=== PATIENT | female | born 1970 | race Caucasian/White ===

== ENCOUNTER 2020-01-27 19:52 | Emergency (ER) | payer BC, SELFPAY ==
[2020-01-27 20:01] VITALS: BP 177/85; PULSE 110; RESP 24; TEMP 38.6; O2SAT 96
--- NOTE | 2020-01-27 20:05 | ED.URI ---
HPI - URI/Sore Throat General Chief Complaint: Upper Respiratory Infection Stated Complaint: Cold/Flu Time Seen by Provider: 01/27/20 20:05 Source: patient and RN notes reviewed Mode of arrival: ambulatory Limitations: no limitations History of Present Illness HPI Narrative: 49-year-old female presents with concern for fever, body aches, chills, cough, rhinorrhea that started yesterday. She reports history of asthma. MD elicited complaint: cough Related Data Home Medications Medication Instructions Recorded Confirmed albuterol sulfate 2 puff INHALATION QID 01/27/20 01/27/20 escitalopram oxalate 10 mg PO DAILY 01/27/20 01/27/20 fluticasone furoate-vilanterol 1 inh INHALATION Q24H 01/27/20 01/27/20 [Breo Ellipta] montelukast [Singulair] 10 mg PO DAILY 01/27/20 01/27/20 omeprazole magnesium [Prilosec OTC] 20 mg PO BID 01/27/20 01/27/20 omeprazole magnesium [Prilosec OTC] 20 mg PO DAILY 01/27/20 01/27/20 Allergies Allergy/AdvReac Type Severity Reaction Status Date / Time No Known Allergies Allergy Verified 01/27/20 20:12 Review of Systems Review of Systems: Narrative: CONSTITUTIONAL: Reports malaise, chills, sweats, or fever. EYES: Denies visual changes, redness, or discharge. ENT: Reports rhinorrhea, congestion. Denies sinus pain, otalgia and sore throat. CARDIOVASCULAR: Denies chest pain, palpitations, or edema. RESPIRATORY: Reports cough, wheeze. Denies dyspnea. GASTROINTESTINAL: Denies abdominal pain, nausea, vomiting, diarrhea SKIN: Denies rash or itching. MUSCULOSKELETAL: Reports myalgia. NEUROLOGIC: Denies headache. All systems reviewed & are unremarkable except as noted in HPI and below PMFSH Comments At time of signature, agree with nursing past medical, surgical, social and family history. There is no relevant family history pertinent to the presenting complaint Exam Narrative: Exam Narrative: GENERAL: Well-appearing, well-nourished, and in no acute distress. HEAD: Normocephalic EYES: PERRLA, conjunctivae clear ENT: Nares clear, turbinates edematous and erythematous, clear discharge. Mucous membranes moist. TM pearly leal with dull light reflex bilaterally; no tragal tenderness. Oropharynx not erythematous without lesions. Tonsils not enlarged and without exudate, no drooling, no hoarseness, no trismus. NECK: Supple. No lymphadenopathy CHEST: Clear to auscultation, breath sounds equal. No wheezing, rhonchi, rales, or stridor. No respiratory distress, speaks in full sentences. Cough noted HEART: Regular rate and rhythm. No murmur heard. Normal peripheral pulses. SKIN: Warm, dry, no rash. NEURO: Alert and oriented x3. PSYCH: Normal mood and affect Course Course Emergency Course: Patient is aware of diagnosis, understands and agrees to treatment plan. Anticipatory guidance given. Patient agrees to follow-up as directed and is aware of reasons to seek care at the emergency department. Portions of this record may have been created with voice recognition software Vital Signs Vital signs: Vital Signs Temperature 101.4 F H 01/27/20 20:01 Pulse Rate 110 H 01/27/20 20:01 Respiratory Rate 24 H 01/27/20 20:01 Blood Pressure 177/85 H 01/27/20 20:01 Pulse Oximetry 96 01/27/20 20:01 Temperature 101.4 F H 01/27/20 20:01 Pulse Rate 110 H 01/27/20 20:01 Respiratory Rate 24 H 01/27/20 20:01 Blood Pressure 177/85 H 01/27/20 20:01 Pulse Oximetry 96 01/27/20 20:01 Your blood pressure was elevated above 120/80 today at [facility]. This puts you above the threshold for follow up. Please schedule a follow up visit with your personal physician as soon as possible, for further evaluation and treatment. Even blood pressure exceeding 120/80 may indicate pre-hypertension. MDM - URI/Sore Throat MDM Narrative Medical decision making narrative: Differential diagnosis considered: Strep pharyngitis, allergic rhinitis, upper respiratory tract infection, sinusitis, rhinosinusitis, nasopharyngitis. viral
== END 2020-01-27 20:21 | disposition home or self-care (01) ==
PROVIDERS: Emergency Provider Nurse Practitioner
DX: J10.1 Influenza due to other identified influenza virus with other respiratory manifestations (principal); J45.909 Unspecified asthma, uncomplicated; F41.9 Anxiety disorder, unspecified
CPT/HCPCS: 87804; 99213; G0463

== ENCOUNTER 2022-09-17 18:13 | Emergency (ER) | payer BC, SELFPAY ==
--- NOTE | 2022-09-17 18:17 | ED.URI ---
HPI - URI/Sore Throat General Chief Complaint: Upper Respiratory Infection Stated Complaint: Sore Throat/Fever Time Seen by Provider: 09/17/22 18:17 Source: patient and RN notes reviewed History of Present Illness HPI Narrative: Patient is a 52-year-old female who presents the urgent care with complaints of body aches, sore throat and fever. Patient states that started last night and the fever started this evening. Patient has taken some Aleve. Denies of any known exposures. However, patient does do home visits and has been in contact with ill people recently. States her main concern is to rule out strep and influenza. No other acute complaints. No acute distress noted. Patient aware of the plan of care. Some parts of this dictation were generated by voice recognition software and may contain typographical and/or grammatical inaccuracies. Related Data Home Medications Medication Instructions Recorded Confirmed empagliflozin 10 mg tablet 10 mg PO DAILY 09/17/22 09/17/22 (Jardiance) erenumab-aooe 140 mg/mL 140 mg subcut MONTHLY 09/17/22 09/17/22 subcutaneous auto-injector (Aimovig Autoinjector) escitalopram oxalate 10 mg tablet 20 mg PO DAILY 09/17/22 09/17/22 montelukast 10 mg tablet 10 mg PO DAILY 09/17/22 09/17/22 semaglutide 0.25 mg or 0.5 mg (2 0.25 mg subcut WEEKLY 09/17/22 09/17/22 mg/1.5 mL) subcutaneous pen injector (Ozempic) sumatriptan succinate 100 mg tablet 100 mg PO DAILY PRN Migraine 09/17/22 09/17/22 Headache Allergies Allergy/AdvReac Type Severity Reaction Status Date / Time No Known Allergies Allergy Verified 09/17/22 18:18 Review of Systems Review of Systems: CONSTITUTIONAL: Reports a fever EYES: Denies visual changes, redness, or discharge. ENT: Denies rhinorrhea, congestion, otalgia. Reports of sore throat CARDIOVASCULAR: Denies chest pain, palpitations, or edema. RESPIRATORY: Denies cough or dyspnea. GASTROINTESTINAL: Denies abdominal pain, nausea, vomiting, or diarrhea. GENITOURINARY: Denies dysuria or hematuria. SKIN: Denies rash or itching. MUSCULOSKELETAL: Denies back pain, joint pain. Reports of body aches NEUROLOGIC: Reports of headache All other systems reviewed are negative, except as documented in HPI. PMFSH Comments At the time of my signature, I reviewed and agree with the nursing past medical, surgical, social, and family history. There is no relevant family history pertinent to the patient complaint. Exam Narrative: GENERAL: This is a well-nourished, well-developed patient, in no apparent distress. HEAD: normocephalic, atraumatic. EYES: PERRL. Sclera clear/white. Vision is grossly intact. EARS: External ears normal, auditory canals clear and without drainage, TMs normal without perforation. Hearing grossly intact. NOSE: External nose normal with no obvious nasal discharge, nares without redness, no rhinorrhea. THROAT: Mucous membranes moist, mild to moderate bilateral tonsillar edema/erythema with bilateral exudate and moderate postnasal drainage NECK: Neck supple, tender right submandibular lymphadenopathy CARDIOVASCULAR: Regular rate and rhythm without murmurs, gallops, or rubs. RESPIRATORY: Clear to auscultation. Breath sounds equal bilaterally. No wheezes, rales, or rhonchi. SKIN: warm, intact with no suspicious lesions or rash, good texture and turgor. NEURO: awake, alert, and oriented to person, place and time. There were no obvious focal neurologic abnormalities. EXTREMITIES: No clubbing, cyanosis, or edema. Course Course Level of Care: Express Care Visit Vital Signs Vital signs: Vital Signs Temperature 100.1 F H 09/17/22 18:19 Pulse Rate 109 H 09/17/22 18:19 Respiratory Rate 16 09/17/22 18:19 Blood Pressure 137/77 09/17/22 18:19 Pulse Oximetry 98 09/17/22 18:19 Oxygen Delivery Room Air 09/17/22 18:19 Temperature 100.1 F H 09/17/22 18:19 Pulse Rate 109 H 09/17/22 18:19 Respiratory Rate 16 09/17/22 18:19 Blood Pre
[2022-09-17 18:19] VITALS: BP 137/77; PULSE 109; RESP 16; TEMP 37.8; O2SAT 98
== END 2022-09-17 18:50 | disposition home or self-care (01) ==
PROVIDERS: Emergency Provider Nurse Practitioner Family
DX: J02.9 Acute pharyngitis, unspecified (principal); J45.909 Unspecified asthma, uncomplicated; E11.9 Type 2 diabetes mellitus without complications; F41.9 Anxiety disorder, unspecified
CPT/HCPCS: 87081; 87804; 87880; 99213; G0463